=== PATIENT | male | born 1970 | race Two or more races ===

== ENCOUNTER 2016-09-12 01:07 | Emergency (ER) | payer OTHER ==
[2016-09-12] MEDS ORDERED: NS 0.9% 1000 ML* 1,000 ML IV ONE (01:32)
[2016-09-12] MEDS ORDERED: Pantoprazole IV* 40 MG IV ONE (01:33)
[2016-09-12] MEDS ORDERED: Pantoprazole IV* 40 MG ONE (01:44)
[2016-09-12 01:46] LABS: Hematocrit 31 % (42-52); Hemoglobin 10.2 g/dl (14.0-18.0); Mean Corpuscular HGB Conc 33 g/dl (31-36); Mean Corpuscular Hemoglobin 28 pg (27-31); Mean Corpuscular Volume 84 fL (80-94); Mean Platelet Volume 8 um3 (7.4-10.4); Red Blood Count 3.65 10^6/ul (4.0-5.4); Red Cell Distribution Width 14 % (10.5-15); White Blood Count 10.5 10^3/ul (3.5-10.8)
[2016-09-12 01:48] LABS: Add Diff/Slide Review? Slide Review Added; Comments Flag Yes
[2016-09-12] MEDS ORDERED: Octreotide Acetate* 50 MCG in NS 0.9% 50 ML* 50 ML IVPB ONE ×2 (01:48→01:56)
--- NOTE | 2016-09-12 01:48 | ED ---
Abdominal Pain/Male - HPI Summary HPI Summary: The patient is a 46 male presenting to ED for complaint of rectal bleeding and diarrhea which began today. Reports 4 episodes of bloody bowel movements today. Admits to associated diaphoresis, lightheadedness, near syncope, dyspnea on exertion, nausea, abdominal pain. Per evaluation of [facility], patient was found to be tachycardia, hypotensive, and pale. Patient is s/p perianal fistula surgical repair with colorectal surgeon Dr. Leach at [facility]. Additional history of GERD, DM, HLP, Obesity, KIMBERLI, CPAP, chronic headache. SH: Prisoner at [place] - History of Current Complaint Chief Complaint: EDDizziness Stated Complaint: LOW BLOOD PRESSURE/DIZZY//POST SURGERY Time Seen by Provider: 09/12/16 01:18 Pain Intensity: 7 - Allergies/Home Medications Allergies/Adverse Reactions: Allergies Allergy/AdvReac Type Severity Reaction Status Date / Time No Known Allergies Allergy Verified 09/12/16 01:44 Home Medications: Home Medications Gabapentin TAB(NF) [Neurontin 600 mg TAB(NF)] 1,200 mg PO BID 09/12/16 [History Confirmed 09/12/16] Ibuprofen TAB* [Motrin TAB* 600 MG] 600 mg PO TID 09/12/16 [History Confirmed ] Lisinopril TAB* [Prinivil TAB*] 20 mg PO DAILY 09/12/16 [History Confirmed 09/12] metFORMIN* [Glucophage*] 500 mg PO BID 09/12/16 [History Confirmed 09/12/16] PMH/Surg Hx/FS Hx/Imm Hx Infectious Disease History: No Infectious Disease History: Denies: Traveled Outside the [place] in Last 30 Days Review of Systems Positive: Fatigue, Skin Diaphoresis Negative: Epistaxis Cardiovascular: Negative Positive: Shortness Of Breath, Other - COPE Positive: Abdominal Pain, Diarrhea, Nausea, Other - no hematemesis. Negative: Vomiting Genitourinary: Negative Negative: dysuria, hematuria Positive: Other - pallor Neurological: Negative All Other Systems Reviewed And Are Negative: Yes Physical Exam Triage Information Reviewed: Yes Vital Signs On Initial Exam: Initial Vitals Temp Pulse Resp BP Pulse Ox 98.4 F 107 16 102/69 99 09/12/16 01:09 09/12/16 01:09 09/12/16 01:09 09/12/16 01:09 09/12/16 01:09 Vital Signs Reviewed: Yes Appearance: Positive: Ill-Appearing, Pain Distress - mild pain, Obese Skin: Positive: Warm, Dry, Pale - significantly pale. Negative: Skin Color Reflects Adequate Perfusion Head/Face: Positive: Normal Head/Face Inspection Eyes: Positive: Other: - Anicteric, conjunctival pallor. ENT: Positive: Hearing grossly normal, Pharynx normal, Other - no gingival hemorrhage; no epistaxis Neck: Positive: Supple Respiratory/Lung Sounds: Positive: Clear to Auscultation, Breath Sounds Present. Negative: Rales, Rhonchi, Wheezes, Unable to speak in full sentences Cardiovascular: Positive: Tachycardia, Other - radial pulse 2+, S1, S2. Negative: Murmur, Rub Abdomen Description: Positive: Distended, Hernia @ - rotund abdomen; large reducible tender hernia just right superior of midline, Other: - moderate tenderness epigastric and periumbilical. Negative: Guarding, Pulsatile Mass Bowel Sounds: Positive: Present Musculoskeletal: Positive: Normal - AROM all extremities Neurological: Positive: Normal - awake, alert, clear speech, following commands Psychiatric: Positive: Normal AVPU Assessment: Alert Diagnostics - Vital Signs Vital Signs Temp Pulse Resp BP Pulse Ox 09/12/16 01:09 98.4 F 107 16 102/69 99 - Laboratory Result Diagrams: 09/12/16 01:35 09/12/16 01:35 Lab Statement: Any lab studies that have been ordered have been reviewed, and results considered in the medical decision making process. Re-Evaluation - Re-Evaluation First Eval Re-Evaluation Time: 02:30 Change: Improved Comment: Patient color is improving. HR normalizing to 70's. BP systolic 110's. No change in temperature to suggest transfusion reaction. Will cover with Benadryl 25 mg IV once. Second Eval Re-Evaluation Time: 02:45 Change: Unchanged Comment: Manual BP 102/64. Per discussion with Dr. Hooker, discontinue transfusion and continue with NS only. Portable CXR without free air. Will obtain CT abd pelvis prior to dc. Third Eval Re-Evaluation Time: 03:20 Change: Unchanged Comment: Ambulated with patient to CT. VS remained stable. Patient being transferred to ambulance for transport to [facility] ED. Abdominal Pain Fem Course/Dx - Diagnoses Provider Diagnoses: Rectal bleeding, Hypovolemic shock, Post-operative complication - Provider Notifications Discussed Care Of Patient With: [place] - Advised initiated of RBC 1 Unit, Octreotide bolus and infusion, and transfer to [facility] for evaluation by colorectal surgeon. Instructed by Provider To: Transfer Admit/Transition Orders Completed By ED Provider: Yes - [facility] ED - Dr. Martinez accepted admission. Reason For Transfer: Specialty or service not available at [facility]. Discharge - Discharge Plan Condition: Improved Disposition: TRANS HIGHER LVL OF CARE FAC
[2016-09-12] MEDS ORDERED: Octreotide Acetate* 500 MCG in NS 0.9% 100 ML* 100 ML IVPB ONE (01:49)
[2016-09-12 02:18] LABS: BUN/Creatinine Ratio 8.8 (8-20); Calcium 9.1 mg/dL (8.6-10.3); EGFR African American 100.2 (>60); Potassium 4.3 mmol/L (3.5-5.0)
[2016-09-12] MEDS ORDERED: diPHENhydraMINE IV* 50 MG/ML 1 ml VIAL (BENADRYL) IV ONE (02:27)
[2016-09-12] MEDS ORDERED: diPHENhydraMINE IV* 50 MG/ML 1 ml VIAL (BENADRYL) ONE (02:31)
[2016-09-12 02:59] VITALS: BP 107/66
--- NOTE | 2016-09-12 07:55 | RAD ---
HISTORY: Abdominal pain COMPARISONS: None VIEWS:1: Single frontal portable view of the chest at 2:45 AM FINDINGS: LINES AND TUBES: None. CARDIOMEDIASTINAL SILHOUETTE: The cardiomediastinal silhouette is normal for portable technique. PLEURA: The costophrenic angles are sharp. No pleural abnormalities are noted. LUNG PARENCHYMA: The lungs are clear. ABDOMEN: The upper abdomen is clear. There is no subphrenic gas. BONES AND SOFT TISSUES: No bone or soft tissue abnormalities are noted. IMPRESSION: NO ACTIVE CARDIOPULMONARY DISEASE.
--- NOTE | 2016-09-12 07:59 | RAD ---
CLINICAL HISTORY: Abdominal pain, rectal hemorrhage COMPARISON: None TECHNIQUE: Multiple contiguous axial CT scans were obtained of the abdomen and pelvis, without intravenous contrast enhancement. Coronal and sagittal multiplanar reformations are submitted for review. Oral contrast was not administered. FINDINGS: The study is limited by the lack of intravenous contrast. This limits evaluation of the solid organs and vasculature. LUNG BASES: The lung bases are clear. LIVER: The liver is diffusely low in attenuation compared to the spleen. There are no focal hepatic parenchymal masses. BILE DUCTS: There is no intrahepatic or extrahepatic biliary dilatation. GALLBLADDER: Multiple gallstones are noted. The gallbladder is incompletely distended. There is no pericholecystic inflammatory change. PANCREAS: The pancreas is normal, without mass or ductal dilatation. SPLEEN: Normal in size and appearance. UPPER GI TRACT: Evaluation of the gastrointestinal tract is limited by incomplete gastric distention. The upper GI tract is unremarkable. SMALL BOWEL AND MESENTERY: The small bowel is normal in contour, course, and caliber. There is no obstruction or dilatation. COLON: The colon is normal in contour, course, caliber. There is no pericolonic inflammatory change. ADRENALS: Normal bilaterally. KIDNEYS: The kidneys are normal in shape, size, contour, and axis. There is no hydronephrosis or nephrolithiasis. BLADDER: The bladder is smooth in contour. PELVIC ORGANS: The prostate gland is normal. The seminal vesicles are symmetric. AORTA: The aorta is normal. IVC: Unremarkable LYMPH NODES: There is no lymphadenopathy by size criteria. ABDOMINAL WALL: There is a large fat-containing ventral hernia to the right of midline. The hernia sac measures approximately 11.9 x 10.3 x 6.3 cm in size. There is stranding of the fat within the hernia sac BONES AND SOFT TISSUES: There are mild diffuse degenerative changes. OTHER: None IMPRESSION: LARGE FAT-CONTAINING VENTRAL HERNIA. CHOLELITHIASIS.
== END 2016-09-12 02:59 | disposition short-term general hospital (02) ==
LOC: ED 01:07
DX: K62.5 Hemorrhage of anus and rectum (principal); R57.1 Hypovolemic shock; T81.9XXA Unspecified complication of procedure, initial encounter; R19.7 Diarrhea, unspecified; R61 Generalized hyperhidrosis; R55 Syncope and collapse; R06.00 Dyspnea, unspecified; R11.0 Nausea; R00.0 Tachycardia, unspecified; I95.9 Hypotension, unspecified; R53.83 Other fatigue; R06.02 Shortness of breath; R23.1 Pallor
CPT/HCPCS: 36415; 71010; 74176; 80048; 82272; 85025; 86850; 86900; 86901; 86922; 96374; 96375; 99285; J1200; J2354; P9040